=== PATIENT | female | born 1970 | race Caucasian/White ===

== ENCOUNTER 2020-03-09 17:41 | Inpatient (IN) | payer OTHER ==
[2020-03-08] MEDS: ATORVASTATIN 20 MG TAB PO SCH (22:30)
[~2020-03-09] VITALS: Ht 180.3 cm; Wt 119.8 kg
[2020-03-09] MEDS ORDERED: ASPIRIN 81 MG CHEW TAB PO ONE (18:00)
--- NOTE | 2020-03-09 18:01 | Emergency Department Note ---
History of Present Illnes History of Present Illness Chief Complaint: General Medicine Complaints History of Present Illness This is a 49 year old female .c/o mid sternum chest pain on set 1pm Chief Complaint Comment chest pain after taking tylenol #3 around 3 pm, had dental procedure earllier today. denies shortness of breath, nausea and vomitng. Onset (how long ago): day(s) (1 pm ) Location: mid sternum Quality: mod Radiation: extremity Severity: moderate Onset quality: sudden Duration (how long): day(s) (1pm) Timing of current episode: constant Progression: worsening Context: recent illness, recent surgery, recent immobilization, recent travel, trauma/injury, new medications, hx of DVT/PE, non-compliance w/ medications; other (pt had dental work this am ) Relieving factors: none Exacerbating factors: none Treatments prior to arrival: none Past Medical/Family History Physician Review I have reviewed the patient's past medical and family history. Any updates have been documented here. Past Medical History Recent Fever: No Clinical Suspicion of Infectio: No New/Unexplained Change in Ment: No Past Medical History: None, Anxiety Other Medical History: pcos Past Surgical History: Cholecysctectomy Social History Smoking Cessation: Never Smoker Alcohol Use: None Any Illegal Drug Use: No TB Exposure/Symptoms: No Physically hurt or threatened: No Family History Family history of heart diseas: No Other Any Pre-Existing Lines (PICC,: No Review of Systems Review of Systems Constitutional: diaphoresis EENTM: no symptoms Cardiovascular: chest pain Respiratory: no symptoms Gastrointestinal: nausea Genitourinary: no symptoms Musculoskeletal: no symptoms Neurological: no symptoms Psychological: no symptoms Endocrine: no symptoms Hematological/Lymphatic: no symptoms Review of other systems All other systems reviewed and negative. Physical Exam Related Data Allergies: Coded Allergies: No Known Allergies (Unverified , 03/09/20) Triage Vital Signs Vital Signs Date Time Temp Pulse Resp B/P (MAP) Pulse Ox O2 Delivery O2 Flow Rate FiO2 03/09/20 17:45 97.6 71 20 186/112 98 Vital signs reviewed: Yes Physical Exam CONSTITUTIONAL Constitutional: well-developed, well-nourished HENT HENT: normocephalic, atraumatic, oropharynx clear/moist, nose normal HENT L/R: left ext ear normal, right ext ear normal EYES Eyes: PERRL, conjunctivae normal NECK Neck: ROM normal PULMONARY Pulmonary: effort normal, breath sounds normal CARDIOVASCULAR Cardiovascular: regular rhythm, heart sounds normal, capillary refill normal, normal rate, other (c/o mid sternum chest ); LLE edema, RLE edema GASTROINTESTINAL Abdominal: soft, nontender, bowel sounds normal GENITOURINARY Genitourinary: exam deferred SKIN Skin: warm, dry MUSCULOSKELETAL Musculoskeletal: ROM normal NEUROLOGICAL Neurological: alert, oriented x 3, no gross motor or sensory deficits PSYCHOLOGICAL Psychological: mood/affect normal, judgement normal Results Laboratory Laboratory Laboratory Tests Test 03/09/20 18:15 White Blood Count 20.81 x10e3/uL (4.8-10.8) Red Blood Count 4.73 x10e6/uL (3.6-5.1) Hemoglobin 12.8 g/dL (12.0-16.0) Hematocrit 39.2 % (34.2-44.1) Mean Corpuscular Volume 82.9 fL (81-99) Mean Corpuscular Hemoglobin 27.1 pg (28-32) Mean Corpuscular Hemoglobin Concent 32.7 g/dL (31-35) Red Cell Distribution Width 14.3 % (11.7-14.4) Platelet Count 390 x10e3/uL (140-360) Neutrophils (%) (Auto) 83.1 % (38.7-80.0) Lymphocytes (%) (Auto) 10.3 % (18.0-39.1) Monocytes (%) (Auto) 4.7 % (4.4-11.3) Eosinophils (%) (Auto) 0.8 % (0.0-6.0) Basophils (%) (Auto) 0.4 % (0.0-1.0) Neutrophils # (Auto) 17.3 (2.1-6.9) Lymphocytes # (Auto) 2.2 (1.0-3.2) Monocytes # (Auto) 1.0 (0.2-0.8) Eosinophils # (Auto) 0.2 (0.0-0.4) Basophils # (Auto) 0.1 (0.0-0.1) Absolute Immature Granulocyte (auto 0.15 x10e3/uL (0-0.1) Prothrombin Time 12.4 seconds (11.9-14.5) Prothromb Time International Ratio 0.88 Activated Partial Thromboplast Time 23.5 seconds (23.8-35.5) Sodium Level 139 mmol/L (136-145) Potassium Level 3.5 mmol/L (3.5-5.1) Chloride Level 105 mmol/L (98-107) Carbon Dioxide Level 21 mmol/L (22-29) Anion Gap 16.5 mmol/L (8-16) Blood Urea Nitrogen 6 mg/dL (7-26) Creatinine 0.92 mg/dL (0.57-1.11) Estimat Glomerular Filtration Rate > 60 ML/MIN (60-) BUN/Creatinine Ratio 7 (6-25) Glucose Level 159 mg/dL (74-118) Calcium Level 9.3 mg/dL (8.4-10.2) Total Bilirubin 0.4 mg/dL (0.2-1.2) Aspartate Amino Transf (AST/SGOT) 22 IU/L (5-34) Alanine Aminotransferase (ALT/SGPT) 24 IU/L (0-55) Alkaline Phosphatase 53 IU/L (40-150) Creatine Kinase 188 IU/L (29-168) Creatine Kinase MB 3.40 ng/mL (0-5.0) Troponin I 0.071 ng/mL (0-0.300) Total Protein 7.8 g/dL (6.5-8.1) Albumin 3.5 g/dL (3.5-5.0) Globulin 4.3 g/dL (2.3-3.5) Albumin/Globulin Ratio 0.8 (0.8-2.0) Thyroid Stimulating Hormone (TSH) 2.148 uIU/mL (0.350-4.940) Laboratory Tests Test 03/09/20 18:15 White Blood Count 20.81 x10e3/uL (4.8-10.8) Red Blood Count 4.73 x10e6/uL (3.6-5.1) Hemoglobin 12.8 g/dL (12.0-16.0) Hematocrit 39.2 % (34.2-44.1) Mean Corpuscular Volume 82.9 fL (81-99) Mean Corpuscular Hemoglobin 27.1 pg (28-32) Mean Corpuscular Hemoglobin Concent 32.7 g/dL (31-35) Red Cell Distribution Width 14.3 % (11.7-14.4) Platelet Count 390 x10e3/uL (140-360) Neutrophils (%) (Auto) 83.1 % (38.7-80.0) Lymphocytes (%) (Auto) 10.3 % (18.0-39.1) Monocytes (%) (Auto) 4.7 % (4.4-11.3) Eosinophils (%) (Auto) 0.8 % (0.0-6.0) Basophils (%) (Auto) 0.4 % (0.0-1.0) Neutrophils # (Auto) 17.3 (2.1-6.9) Lymphocytes # (Auto) 2.2 (1.0-3.2) Monocytes # (Auto) 1.0 (0.2-0.8) Eosinophils # (Auto) 0.2 (0.0-0.4) Basophils # (Auto) 0.1 (0.0-0.1) Absolute Immature Granulocyte (auto 0.15 x10e3/uL (0-0.1) Prothrombin Time 12.4 seconds (11.9-14.5) Prothromb Time International Ratio 0.88 Activated Partial Thromboplast Time 23.5 seconds (23.8-35.5) Sodium Level 139 mmol/L (136-145) Potassium Level 3.5 mmol/L (3.5-5.1) Chloride Level 105 mmol/L (98-107) Carbon Dioxide Level 21 mmol/L (22-29) Anion Gap 16.5 mmol/L (8-16) Blood Urea Nitrogen 6 mg/dL (7-26) Creatinine 0.92 mg/dL (0.57-1.11) Estimat Glomerular Filtration Rate > 60 ML/MIN (60-) BUN/Creatinine Ratio 7 (6-25) Glucose Level 159 mg/dL (74-118) Calcium Level 9.3 mg/dL (8.4-10.2) Total Bilirubin 0.4 mg/dL (0.2-1.2) Aspartate Amino Transf (AST/SGOT) 22 IU/L (5-34) Alanine Aminotransferase (ALT/SGPT) 24 IU/L (0-55) Alkaline Phosphatase 53 IU/L (40-150) Creatine Kinase 188 IU/L (29-168) Total Protein 7.8 g/dL (6.5-8.1) Albumin 3.5 g/dL (3.5-5.0) Globulin 4.3 g/dL (2.3-3.5) Albumin/Globulin Ratio 0.8 (0.8-2.0) Laboratory Tests Test 03/09/20 18:15 Laboratory Tests Test 03/09/20 18:15 Lab results reviewed: Yes Imaging Impressions IMPRESSION: No acute thoracic abnormality. Signed by: Dr. Chelita Thomas MD on 03/09/2020 6:39 PM Dictated By: CHELITA THOMAS MD 38 Transcribed By: SANCHEZ on 03/09/201838 Procedures 12 Lead ECG Interpretation Furnace Mason: Interpreted by ED physician (ross) Date: March 09, 2020 Time: 18:10 Prior IT PROJECT LEAD tracings: reviewed Rhythm: sinus rhythm Ectopy: PVC's Rate: normal BPM: 71 QRS axis: normal ST segments normal: No (stemi) ST segment elevation: II, III, aVF Clinical Impression: abnormal ECG Critical Care Time Subsequent provider I assumed direction of critical care for this patient from another provider of my specialty. Assessment & Plan Reassessment Reassessment time: 17:59 Reassessment 49y f presented to ed c/o mid sternum cp on set 1pm reports nausea chills diaphoresis cp radiating to left arm - Dr Naranjo in eval pt status - lab ekg cxr ordered Dr Naranjo at bed side eval pt 2nd ekg obtained STEMI ALERT called 1810 pt to go to general laborer Assessment & Plan Final Impression: (1) ST ELEVATION (STEMI) MYOCARDIAL INFARCTION OF [facility] SITE Assessment & Plan Dr Naranjo discussed plan of care and need for admit Dr Naranjo spoke w/ Dr Mariscal will take pt to general laborer Dr Naranjo spoke w/ Dr Forman will admit pt to general laborer Depart Disposition: ADMITTED Last Vital Signs Date Time Temp Pulse Resp B/P (MAP) Pulse Ox O2 Delivery O2 Flow Rate FiO2 03/09/20 17:45 97.6 71 20 186/112 98 Medications in the ED Aspirin 81 mg PRN ONCE PO ; Start 03/09/20 at 18:00; Stop 03/09/20 at 18:01; Status UNV JAXON SANDERS NP March 09, 2020 18:01
--- NOTE | 2020-03-09 18:01 | NUR ---
CRASH CART IN ROOM AND PT ON PADS. ELEVATION ST NOTED.
[2020-03-09] MEDS ORDERED: ONDANSETRON HCL INJ 2MG/ML 2ML 2 MG/ML VIAL IV PRN (18:15)
[2020-03-09] MEDS ORDERED: MORPHINE SULFATE 2 MG/ML SYR 1ML IV PRN (18:15)
--- NOTE | 2020-03-09 18:29 | NUR ---
consent on chart
[2020-03-09] MEDS ORDERED: MORPHINE SULFATE 2 MG/ML SYR 1ML IV NR (18:30)
[2020-03-09] MEDS ORDERED: ONDANSETRON HCL INJ 2MG/ML 2ML 2 MG/ML VIAL IV NR (18:30)
--- NOTE | 2020-03-09 18:31 | NUR ---
ASA given by ems relief captain total 324mg po chew and swallow.
--- NOTE | 2020-03-09 18:33 | NUR ---
called lab regarding why blood not registered in to start being run. spoke to nickolas in lab.
--- NOTE | 2020-03-09 18:40 | NUR ---
DR MERCADO'S HERE. CHART TO RN. REPORT TO RN. PT REMAINS SR WITH ST ELEVATION NOTED. SPOUSE AT BEDSIDE.
[2020-03-09 18:41] LABS: BASOPHILS # (AUTO) 0.1 (0.0-0.1); BASOPHILS % 0.4 % (0.0-1.0); EOSINOPHILS # (AUTO) 0.2 (0.0-0.4); EOSINOPHILS % 0.8 % (0.0-6.0); HEMATOCRIT 39.2 % (34.2-44.1); HEMOGLOBIN 12.8 g/dL (12.0-16.0); LYMPHOCYTES # (AUTO) 2.2 (1.0-3.2); LYMPHOCYTES % 10.3 % (18.0-39.1); MEAN CORPUSCULAR HEMOGLOBIN 27.1 pg (28-32); MEAN CORPUSCULAR HGB CONC 32.7 g/dL (31-35); MEAN CORPUSCULAR VOLUME 82.9 fL (81-99); MONOCYTES % 4.7 % (4.4-11.3); NEUTROPHILS # (AUTO) 17.3 (2.1-6.9); NEUTROPHILS % 83.1 % (38.7-80.0); PLATELET COUNT 390 x10e3/uL (140-360); RED BLOOD COUNT 4.73 x10e6/uL (3.6-5.1); RED CELL DISTRIBUTION WIDTH 14.3 % (11.7-14.4)
--- NOTE | 2020-03-09 18:42 | Diagnostic Imaging Report ---
EXAMINATION: CHEST SINGLE (PORTABLE) INDICATION: Chest pain. COMPARISON: None FINDINGS: TUBES and LINES: None. LUNGS: Lungs are moderately inflated. There is no evidence of pneumonia or pulmonary edema. PLEURA: No pleural effusion or pneumothorax. HEART AND MEDIASTINUM: The cardiomediastinal silhouette is unremarkable. BONES AND SOFT TISSUES: No acute osseous lesion. Soft tissues are unremarkable. UPPER ABDOMEN: No free air under the diaphragm. IMPRESSION: No acute thoracic abnormality. Signed by: Dr. Nii Silveira MD on 03/09/2020 6:39 PM
[2020-03-09] MEDS ORDERED: HEPARIN SOD (PORCINE) 1000 UNIT/ML 30ML ONE (18:43)
[2020-03-09] MEDS ORDERED: FENTANYL CITRATE/PF 100MCG/2 ML INJ ONE (18:44)
[2020-03-09] MEDS ORDERED: MIDAZOLAM HCL 2 MG/2 ML VIAL ONE (18:44)
[2020-03-09] MEDS ORDERED: LIDOCAINE HCL 2% LOCAL 20 ML VIAL ONE (18:44)
[2020-03-09] MEDS ORDERED: NITROGLYCERIN/D5W 200 MCG/ML 250 ML ONE (18:45)
[2020-03-09] MEDS ORDERED: HEPARIN SOD/SOD CHLORIDE 2,000 ML ONE (18:45)
[2020-03-09] MEDS ORDERED: SODIUM CHLORIDE 0.9% 1000ML 1,000 ML ONE (18:45)
[2020-03-09] MEDS ORDERED: IOPAMIDOL 370 MG/ML 200 ML INFUS..BTL INJ ONE ×2 (18:45→19:45)
[2020-03-09 18:51] LABS: INR 0.88; PARTIAL THROMBOPLASTIN TIME 23.5 seconds (23.8-35.5); PROTHROMBIN TIME 12.4 seconds (11.9-14.5)
--- NOTE | 2020-03-09 18:54 | NUR ---
STOCK CHASER HERE TAKING PT. PT LEAVING FOR CATH
--- NOTE | 2020-03-09 18:57 | NUR ---
CBC NOT RUNNING, CALLED BLAKE IN LAB AGAIN TO NOTIFY OF PT BEING STEMI AND LEFT ER FOR DIE PRESS OPERATOR AND NO RESULTS OR EVEN LOGGED IN AT THIS TIME.
[2020-03-09 18:59] LABS: ALANINE AMINOTRANSFERASE 24 IU/L (0-55); ALBUMIN 3.5 g/dL (3.5-5.0); ALBUMIN/GLOBULIN RATIO 0.8 (0.8-2.0); ALKALINE PHOSPHATASE 53 IU/L (40-150); ANION GAP 16.5 mmol/L (8-16); BLOOD UREA NITROGEN 6 mg/dL (7-26); BUN/CREATININE RATIO 7 (6-25); CALCIUM 9.3 mg/dL (8.4-10.2); CARBON DIOXIDE 21 mmol/L (22-29); CHLORIDE 105 mmol/L (98-107); CREATINE KINASE 188 IU/L (29-168); CREATININE, SERUM 0.92 mg/dL (0.57-1.11); EST GLOMERULAR FILTRATION RATE > 60 ML/MIN (60-); GLUCOSE 159 mg/dL (74-118); POTASSIUM 3.5 mmol/L (3.5-5.1); SODIUM 139 mmol/L (136-145)
[2020-03-09 19:18] LABS: THYROID STIMULATING HORMONE 2.148 uIU/mL (0.350-4.940)
[2020-03-09] MEDS ORDERED: TICAGRELOR 90 MG TABLET ONE (19:18)
[2020-03-09] MEDS: EPTIFIBATIDE 75mg 100ML 100 ML IV SCH (19:30)
[2020-03-09] MEDS ORDERED: EPTIFIBATIDE 75mg 100ML 100 ML ONE (19:39)
[2020-03-09] MEDS ORDERED: EPTIFIBATIDE 20 ML ONE (19:39)
--- OUTSIDE RECORDS SUMMARY | 2020-03-09 20:18 | XMS REPORT | Clinical Summary ---
Author Author [facility] Organization [facility] Address Unknown Phone Unavailable Care Team Providers Care Manufacturing Business Analyst Name Role Phone Asked, No Pcp PCP Unavailable Allergies No Known Allergies Medications End Date Status Medication Sig Dispensed Refills Start Date Active omeprazole (PriLOSEC) 20 Take 20 mg by 0 MG capsule mouth daily. Active cyanocobalamin, vitamin Take 1,500 0 B-12, 1,000 mcg/15 mL mcg by mouth liquid every morning. Active doxylamine (UNISOM, Take 25 mg by 0 DOXYLAMINE,) 25 mg tablet mouth nightly as needed for sleep. Active Problems Problem Noted Date Acute cholecystitis 02/13/2019 Social History Date Tobacco Use Types Packs/Day Years Used Current Every Day Smoker 0.5 18 Smokeless Tobacco: Never Used Drinks/Week oz/Week Comments Alcohol Use No Alcohol Habits Answer Date Recorded How often do you have a drink containing alcohol? Never 02/13/2019 How many drinks containing alcohol do you have on No t asked a typical day when you are drinking? How often do you have six or more drinks on one Not asked occasion? Sex Assigned at Date Recorded Not on file Industry Job Start Date Occupation Not on file Not on file Not on file Travel End Travel History Travel Start No recent travel history available. Last Filed Vital Signs Not on file Plan of Treatment Health Maintenance Due Date Last Done Comments CERVICAL CANCER SCREENING 1993 INFLUENZA VACCINE 05/11/2020 Results Not on fileafter 03/09/2019 Insurance Type Payer Benefit Subscriber ID Effective Phone Address Plan / Dates Group Commercial [employer] PENSION ADMINIS GROUP AND xxxxxxxxx 2018-P PENSION resent ADMINIS Advance Directives For more information, please contact: [phone] Patient Supervisor Insulation Explanation Type Date Recorded Advance Directives, 02/13/2019 8:52 AM Living Will and Medical Power of Genetic Coordinator Date Inactivated Comments Code Status Date Activated 02/14/2019 10:32 PM Full Code 02/13/2019 11:38 PM Code Status decision reached by: Patient 02/13/2019 11:37 PM Full Code 02/13/2019 2:30 PM Code Status decision reached by: Patient
--- OUTSIDE RECORDS SUMMARY | 2020-03-09 20:18 | XMS REPORT ---
Author Author [facility] t Organization [facility] Address [address] [place] [address] Phone Unavailable Care Team Providers Care Supervisor Filter Assembly Name Role Phone Asked, Pcp No PCP Unavailable Edilia CHAVEZ Attphys Unavailable Problems Condition Name Condition Details Condition Category Status Onset Date Resolution Date Last Treatment Date Treating Clinician Comments Source Acute cholecystitis Acute cholecystitis Disease Active 2019-02-13 00:00 :00 Jass Leyva Allergies, Adverse Reactions, Alerts This patient has no known allergies or adverse reactions. Social History Social Habit Start Date Stop Date Quantity Comments Source History SDOH Alcohol Std Drinks Jass Leyva History SDOH Alcohol Binge Jass Leyva Sex Assigned At Kian Leyva Cigarettes smoked current (pack per day) - Reported 00:00:00 2019-02-14 00:00:00 Jass Leyva Cigarette pack-years 2019-02-14 00:00:00 2019-02-14 00:00:00 Jass Leyva Alcohol intake 2019-02-14 00:00:00 2019-02-14 00:00:00 Current non-drinker of alcohol (finding) Jass Leyva History SDOH Alcohol Frequency 2019-02-13 00:00:00 2019-02-13 00:00:0 0 1 Jass Leyva Smoking Status Start Date Stop Date Source Current every day smoker 2019-02-14 00:00:00 Kian Leyva Medications Ordered Medication Name Filled Medication Name Start Date Stop Da te Current Medication? Ordering Clinician Indication Dosage Frequency Signature (SIG) Comments Components Source omeprazole (PriLOSEC) 20 MG capsule 2019-02-14 18:32:13 Yes 20mg QD Take 20 mg by mouth daily. Jass Leyva cyanocobalamin, vitamin B-12, 1,000 mcg/15 mL liquid 2 18:32:13 Yes 1500ug QD Take 1,500 mcg by mouth every morning. Jass Leyva doxylamine (UNISOM, DOXYLAMINE,) 25 mg tablet 2019-02-14 18:32:1 3 Yes 25mg QD Take 25 mg by mouth nightly as needed for sleep. Jass Leyva Procedures This patient has no known procedures. Plan of Care Planned Activity Planned Date Details Comments Source Future Scheduled Test 2020-05-11 00:00:00 INFLUENZA VACCINE [code = INFLUENZA VACCINE] Jass Leyva Future Scheduled Test 1993 00:00:00 Screening for sandrine gnant neoplasm of cervix (procedure) [code = 964193580] Jass Lazar t Results Test Description Test Time Test Comments Results Result Comments Source CHEST SINGLE (PORTABLE) 2020-03-09 18:38:00 [place] [address] Patient Name: KADEN MAK MR #: [id number] : 1970 Age/Sex: 49/F Req #: [id number] Adm Physician: Ordered by: JAXON SANDERS MOTOR BUILDER WINDER Report #: [id number] Location: ER Room/Bed: Procedure: [id number] DX/CHEST SINGLE (PORTABLE) Exam Date: 03/09/20 Exam Time: 1811 REPORT STATUS: Signed EXAMINATION: CHEST SINGLE (PORTABLE) INDICATION: Chest pain. COMPARISON: None FINDINGS: TUBES and LINES: None. LUNGS: Lungs are moderately inflated. There is no evidence of pneumonia or pulmonary edema. PLEURA: No pleural effusion or pneumothorax. HEART AND MEDIASTINUM: The cardiomediastinal silhouette is unremarkable. BONES AND SOFT TISSUES: No acute osseous lesion. Soft tissues are unremarkable. UPPER ABDOMEN: No free air under the diaphragm. IMPRESSION: No acute thoracic abnormality. Signed by: Dr. Chelita Thomas MD on 03/09/2020 6:39 PM Dictated By: CHELITA THOMAS MD 38 Transcribed By: SANCHEZ on 03/09/201838 COPY TO: JAXON SANDERS NP
[2020-03-09 20:34] VITALS: BP 144/98
[2020-03-09 21:00] VITALS: BP 147/90
[2020-03-09 21:15] VITALS: BP 153/98
[2020-03-09 22:00] VITALS: BP 151/85
--- NOTE | 2020-03-09 22:22 | NUR ---
Notified Dr. Mariscal of bleeding from cath site and pressure dressing applied. stated OK to change original dsg after bleeding stops.
[2020-03-09 23:00] VITALS: BP 150/97
--- NOTE | 2020-03-09 23:15 | NUR ---
Rhythm change noted. EKG done. Dr. Mariscal saw EKG, received new orders. Patient shows no acute signs of distress.
[2020-03-09] MEDS ORDERED: AMIODARONE HCL 150MG 100 ML IV ONE (23:30)
[2020-03-09] MEDS ORDERED: AMIODARONE HCL 900 MG in DEXTROSE 5% 500ML 500 ML IV ONE (23:30)
[2020-03-09] MEDS ORDERED: AMIODARONE 900MG 500 ML IV ONE (23:38)
[2020-03-09] MEDS ORDERED: AMIODARONE HCL 100 ML IV ONE (23:38)
[2020-03-10] VITALS (22 sets, daily range): BP systolic 132–171; BP diastolic 59–104
--- NOTE | 2020-03-10 00:11 | Operative Report ---
DATE OF PROCEDURE: SURGEON: Buddy Mariscal DO PROCEDURES PERFORMED: 1. Conscious sedation, 1 hour. 2. Selective coronary angiography x2. 3. Left heart catheterization. 4. Percutaneous transluminal angioplasty and stent placement to the left anterior descending coronary artery. 5. Percutaneous coronary intervention during an acute myocardial infarction. PRE-PROCEDURE DIAGNOSIS: Inferior ST-elevation myocardial infarction. POST PROCEDURE DIAGNOSIS: Inferior ST-elevation myocardial infarction. ESTIMATED BLOOD LOSS: Less than 20 mL. SPECIMENS REMOVED: None. PROCEDURE IN DETAIL: After informed consent was obtained, the patient was brought to the cardiac catheterization emergently after being found to have inferior ST elevations on her electrocardiogram and having symptoms of chest pain. Bilateral groins were prepped and draped in the usual sterile fashion. A 2% lidocaine was used for the right anterior groin for local anesthesia. Using a micropuncture needle, the right common femoral artery was accessed via modified Seldinger technique and a 6-Hebrew sheath was placed. The patient received Fentanyl and midazolam administered by the laborer livestock nurse and her neurologic and physiologic states were monitored by myself and the laborer livestock staff. Diagnostic coronary angiography was performed. This revealed an 80% ulcerated lesion in the proximal LAD with plaque burden. The lesion was crossed and pre-dilated with a two 5 x 12 balloon. Then, the lesion was stented with a three 5 x 20 [employer] synergy drug-eluting stent. There was a plaque shift proximally and distally, so the proximal portion was stented with a three 5 x 8 [employer] synergy drug-eluting stent. The distal portion then was stented with a 4 x 12 Synergy drug-eluting stent. The entire stent length was then post dilated with the 4 mm balloon. Final angiography confirmed excellent stent apposition with brisk JO-ANN-3 flow up until the distal portion of the LAD at the apex. There was mild distal thrombus with JO-ANN-2 flow here. The patient tolerated the procedure well with no immediate complications and was transferred back to her room in stable condition. Hemostasis was achieved via Angio-Seal device. PROCEDURAL FINDINGS: 1. Left main coronary artery is patent without significant disease. 2. LAD has an ulcerated 80% plaque in the proximal portion. There is distal thrombus at the apical LAD region. 3. Left circumflex coronary provides two obtuse marginal vessels with luminal irregularities. 4. Right coronary artery is a dominant vessel and provides the posterior descending coronary artery. There is a proximal 20% stenosis. 5. Left ventricular end-diastolic pressure was 20 to 25 mmHg with no aortic valve gradient present upon pullback. INTERVENTION RESULTS: Successful percutaneous coronary intervention of the left anterior descending coronary artery. Pre-PCI JO-ANN flow was 2. Post PCI JO-ANN flow was 3. Postprocedure stenosis less than 10%. DO TAYLER Carney/NICKIE /[id number]
--- NOTE | 2020-03-10 02:00 | NUR ---
Dr. Mariscal aware that catheter insertion site is bleeding, violeta dutton MD at bedside.
[2020-03-10] MEDS: EPTIFIBATIDE 75mg 100ML 100 ML IV SCH (02:20)
[2020-03-10] MEDS ORDERED: SPIRONOLACTONE25 MG PO (03:25)
[2020-03-10 05:51] LABS: BASOPHILS % 0.3 % (0.0-1.0); EOSINOPHILS % 0.2 % (0.0-6.0); HEMATOCRIT 36.8 % (34.2-44.1); HEMOGLOBIN 11.7 g/dL (12.0-16.0); LYMPHOCYTES # (AUTO) 2.3 (1.0-3.2); LYMPHOCYTES % 15.4 % (18.0-39.1); MEAN CORPUSCULAR HEMOGLOBIN 26.7 pg (28-32); MEAN CORPUSCULAR HGB CONC 31.8 g/dL (31-35); MONOCYTES # (AUTO) 0.9 (0.2-0.8); MONOCYTES % 5.8 % (4.4-11.3); NEUTROPHILS # (AUTO) 11.9 (2.1-6.9); PLATELET COUNT 343 x10e3/uL (140-360); RED BLOOD COUNT 4.38 x10e6/uL (3.6-5.1); RED CELL DISTRIBUTION WIDTH 14.4 % (11.7-14.4)
[2020-03-10 06:26] LABS: ALANINE AMINOTRANSFERASE 25 IU/L (0-55); ALBUMIN 3.1 g/dL (3.5-5.0); ALBUMIN/GLOBULIN RATIO 0.8 (0.8-2.0); ALKALINE PHOSPHATASE 47 IU/L (40-150); ANION GAP 13.8 mmol/L (8-16); BLOOD UREA NITROGEN 7 mg/dL (7-26); BUN/CREATININE RATIO 10 (6-25); CALCIUM 8.8 mg/dL (8.4-10.2); CARBON DIOXIDE 19 mmol/L (22-29); CHLORIDE 107 mmol/L (98-107); CHOL/HDL RATIO 4.5 (3.0-3.6); CHOLESTEROL 156 MD/DL (0-199); CREATININE, SERUM 0.69 mg/dL (0.57-1.11); EST GLOMERULAR FILTRATION RATE > 60 ML/MIN (60-); GLUCOSE 116 mg/dL (74-118); HDL CHOLESTEROL 35 MG/DL (40-60); LDL CHOLESTEROL 81 MG/DL (60-130); POTASSIUM 3.8 mmol/L (3.5-5.1); SODIUM 136 mmol/L (136-145); TRIGLYCERIDES 200 MG/DL (0-149)
[2020-03-10] MEDS: ASPIRIN 81 MG ENTERIC COATED PO SCH (10:00)
[2020-03-10] MEDS: METOPROLOL SUCCINATE 25 MG TAB XL PO SCH (10:00)
[2020-03-10] MEDS: TICAGRELOR 90 MG TABLET PO SCH ×2 (10:00→17:00)
[2020-03-10] MEDS ORDERED: AMIODARONE HCL 200 MG TAB PO SCH (12:00)
[2020-03-10] MEDS: LISINOPRIL 10 MG TAB PO SCH (12:58)
--- NOTE | 2020-03-10 14:19 | Consultation ---
DATE OF CONSULTATION: Pulmonary Critical Care Consultation CHIEF COMPLAINT: Chest pain and myocardial infarction. HISTORY OF PRESENT ILLNESS: The patient is a 49-year-old woman. She came in with substernal chest pain while asleep. She had diaphoresis and shortness of breath. EKG showed an inferior IA with ST-segment elevation. She went to the vat house laborer and had an emergent stent placed in the left anterior descending artery. She is now on Integrilin drip along with anti-platelet therapy. PAST SURGICAL HISTORY: 1. Status post cholecystectomy. 2. Status post PTCA as above. PAST MEDICAL HISTORY: Coronary artery disease. SOCIAL HISTORY: The patient is a smoker about half a pack a day. She does not drink alcohol. ALLERGIES: NO KNOWN DRUG ALLERGIES. REVIEW OF SYSTEMS: The patient is afebrile. She has no headache. She did have chest pain, but this has improved. She did have shortness of breath, but has improved. She has no abdominal pain. She has no nausea or vomiting. She has no leg edema. PHYSICAL EXAMINATION: VITAL SIGNS: The patient is afebrile. Blood pressure is 180/85, saturation is 97%. The pulse is 84. HEENT: Shows no facial swelling or erythema. CARDIAC: Reveals regular rate and rhythm with normal S1 and S2. LUNGS: Auscultation of lungs reveals clear breath sounds bilaterally. There is no wheezing. ABDOMEN: Soft, nontender. There is no rebound or guarding. EXTREMITIES: Show no leg edema or calf tenderness. There is no cyanosis or clubbing. SKIN: Shows no rashes. NEUROLOGICAL: Shows no focal abnormalities. LABORATORY DATA: BUN to creatinine ratio is 7 to 0.69. The other electrolytes are within normal limits. The carbon dioxide is 19. White blood cell count is 15.2 and hemoglobin is 11.7. The platelet count is 343. IMPRESSION: 1. Inferior wall myocardial infarction with percutaneous transluminal coronary angioplasty. 2. Coronary artery disease. 3. Hyperlipidemia. PLAN: 1. Continue Integrilin infusion. 2. Continue anti-platelet therapy. 3. Continue telemetry monitoring. 4. Transfer out of intensive care unit once Integrilin has finished and monitor in IMCU. Federico Moreno MD [facility]/NICKIE /[id number]
--- NOTE | 2020-03-10 15:03 | Progress Note ---
DATE: Cardiology Progress Note SUBJECTIVE: The patient is feeling overall better. Vague chest discomfort, however, is improved since yesterday. No shortness of breath. No palpitations. OBJECTIVE: VITAL SIGNS: Temperature is 97.9, heart rate is 84, respirations are 19, blood pressure is 155/91, oxygen saturation 97% on room air. GENERAL: Well appearing in no apparent distress. CARDIOVASCULAR: Regular rate and rhythm with ectopy. LUNGS: Clear to auscultation. ABDOMEN: Soft, nontender, obese. EXTREMITIES: No edema. CARDIOVASCULAR MEDICATIONS: Reviewed. LABORATORY DATA: Reviewed. Creatinine is 0.69. TELEMETRY: Monitoring reviewed and shows premature ventricular complexes and ventricular couplets with predominant rhythm being normal sinus rhythm. ASSESSMENT: 1. Inferior ST-elevation myocardial infarction. 2. Coronary artery disease, status post percutaneous coronary intervention to the proximal left anterior descending coronary artery. 3. Hypertension. 4. Hyperlipidemia. 5. Obesity. 6. Tobacco use. 7. Acute systolic congestive heart failure. PLAN: 1. The patient is stable from a cardiovascular standpoint. She had developed an idioventricular rhythm last night and was initiated on amiodarone infusion. Once this protocol is completed, start amiodarone 200 mg p.o. b.i.d. Her ejection fraction is mildly decreased 40% to 45%.. Start Toprol-XL and lisinopril. She appears well compensated and euvolemic. Monitor closely on telemetry. Continue dual anti-platelet therapy and high-dose statin. Buddy Mariscal DO [facility]/MODL /[id number]
[2020-03-10] MEDS: AMIODARONE HCL 200 MG TAB PO SCH (17:00)
[2020-03-10] MEDS: ATORVASTATIN 20 MG TAB PO SCH (20:40)
[2020-03-11] VITALS: BP 151/91
[2020-03-11 05:00] VITALS: BP 131/86
[2020-03-11 06:08] LABS: BASOPHILS # (AUTO) 0.1 (0.0-0.1); BASOPHILS % 0.4 % (0.0-1.0); EOSINOPHILS # (AUTO) 0.2 (0.0-0.4); EOSINOPHILS % 1.1 % (0.0-6.0); HEMATOCRIT 37.7 % (34.2-44.1); HEMOGLOBIN 12.4 g/dL (12.0-16.0); LYMPHOCYTES # (AUTO) 2.7 (1.0-3.2); LYMPHOCYTES % 18.9 % (18.0-39.1); MEAN CORPUSCULAR HEMOGLOBIN 27.4 pg (28-32); MEAN CORPUSCULAR HGB CONC 32.9 g/dL (31-35); MEAN CORPUSCULAR VOLUME 83.2 fL (81-99); MONOCYTES # (AUTO) 1.1 (0.2-0.8); MONOCYTES % 7.9 % (4.4-11.3); NEUTROPHILS # (AUTO) 10.2 (2.1-6.9); NEUTROPHILS % 71.1 % (38.7-80.0); PLATELET COUNT 332 x10e3/uL (140-360); RED BLOOD COUNT 4.53 x10e6/uL (3.6-5.1); RED CELL DISTRIBUTION WIDTH 14.6 % (11.7-14.4)
[2020-03-11 06:31] LABS: ALANINE AMINOTRANSFERASE 29 IU/L (0-55); ALBUMIN 3.3 g/dL (3.5-5.0); ALBUMIN/GLOBULIN RATIO 0.8 (0.8-2.0); ALKALINE PHOSPHATASE 52 IU/L (40-150); ANION GAP 13.7 mmol/L (8-16); BLOOD UREA NITROGEN 8 mg/dL (7-26); BUN/CREATININE RATIO 11 (6-25); CARBON DIOXIDE 20 mmol/L (22-29); CHLORIDE 105 mmol/L (98-107); CREATININE, SERUM 0.74 mg/dL (0.57-1.11); EST GLOMERULAR FILTRATION RATE > 60 ML/MIN (60-); GLUCOSE 112 mg/dL (74-118); MAGNESIUM 1.6 MG/DL (1.3-2.1); POTASSIUM 3.7 mmol/L (3.5-5.1); SODIUM 135 mmol/L (136-145)
[2020-03-11 07:32] VITALS: BP 131/86
[2020-03-11 07:48] VITALS: BP 129/91
[2020-03-11] MEDS: METOPROLOL SUCCINATE 25 MG TAB XL PO SCH (07:50)
[2020-03-11] MEDS: TICAGRELOR 90 MG TABLET PO SCH ×2 (07:51→16:11)
[2020-03-11] MEDS: LISINOPRIL 10 MG TAB PO SCH (07:51)
[2020-03-11] MEDS: AMIODARONE HCL 200 MG TAB PO SCH ×2 (07:51→16:11)
[2020-03-11] MEDS: ASPIRIN 81 MG ENTERIC COATED PO SCH (07:51)
--- NOTE | 2020-03-11 10:06 | Progress Note ---
DATE: 03/11/2020 SUBJECTIVE: The patient denies chest pain or shortness of breath. OBJECTIVE: VITAL SIGNS: Temperature 98.4 degrees, pulse 90, respiratory rate 18, blood pressure 129/91, and oxygen saturation 100% on room air. GENERAL: Awake, alert, in no acute distress. LUNGS: Clear to auscultation bilaterally. No wheezes or crackles. CARDIOVASCULAR: Normal rate. Regular rhythm. No murmur. Normal S1, S2. ABDOMEN: Soft, nontender. EXTREMITIES: No edema. CARDIAC MEDICATIONS: Amiodarone 200 mg p.o. b.i.d., lisinopril 10 mg p.o. daily, aspirin 81 mg p.o. daily, metoprolol succinate 25 mg p.o. daily, atorvastatin 80 mg p.o. at bedtime, and Brilinta 90 mg p.o. b.i.d. LABORATORY DATA: WBC 14.28, hemoglobin 12.4, hematocrit 37.7, and platelets 332. Sodium 135, potassium 3.7, chloride 105, CO2 of 20, BUN 8, and creatinine 0.74. TELEMETRY: Telemetry was personally reviewed and interpreted, revealing normal sinus rhythm. IMPRESSION: 1. Inferior ST-elevation myocardial infarction. 2. Coronary artery disease, status post PCI of the LAD. 3. Hypertension. 4. Hyperlipidemia. 5. Acute systolic heart failure. 6. Tobacco use. 7. Obesity. RECOMMENDATIONS: Continue dual anti-platelet therapy and high dose statin. She is on optimal medical therapy for her acute systolic heart failure. Continue amiodarone. Monitor the patient on telemetry. She can be transferred out of the ICU as she is stable from a cardiovascular standpoint. Possible discharge home later today or tomorrow. Monitor the patient on telemetry while admitted. Thank you for this consult. We will continue to follow. Dannielle Austin MD ABS/MODL /[id number]
[2020-03-11] MEDS ORDERED: TOPROL XL25 MG PO (11:02)
[2020-03-11] MEDS ORDERED: ASPIRIN EC81 MG PO (11:02)
[2020-03-11] MEDS ORDERED: LIPITOR20 MG PO (11:02)
[2020-03-11] MEDS ORDERED: BRILINTA90 MG PO (11:02)
[2020-03-11] MEDS ORDERED: LISINOPRIL10 MG PO (11:02)
[2020-03-11] MEDS ORDERED: AMIODARONE HCL200 MG PO (11:02)
--- NOTE | 2020-03-11 11:46 | NUR ---
Report given to GINA Duarte for Room 115
--- NOTE | 2020-03-11 11:58 | NUR ---
RECEIVED PATIENT FROM ICU. PT AMBULATED TO UNIT WITH NURSE. NO S/S OF DISTRESS, PT IS ALERT WITH NO COMPLAINTS AT THIS TIME. PT ORIENTED TO ROOM, CALL LIGHT PLACED WITHIN REACH AND INSTRUCTED PT TO CALL RN FOR HELP
[2020-03-11 16:15] VITALS: BP 135/75
--- NOTE | 2020-03-11 17:33 | NUR ---
pt ambulated >400 ft in the hallways per Denice Berry NP and Dr. Austin's request. no s/s of distress noted. pt became tachy with the highest reaching 110 and had a pair of PVC's. notified Denice Berry NP and got discharge orders for the patient
--- NOTE | 2020-03-12 04:16 | Discharge Summary ---
ADMISSION DIAGNOSES: 1. ST-elevation myocardial infarction, arrhythmia. 2. Obesity with a BMI of 36.8. 3. Hyperlipidemia. DISCHARGE DIAGNOSES: 1. ST-elevation myocardial infarction, arrhythmia. 2. Obesity with a BMI of 36.8. 3. Hyperlipidemia. HISTORY: PCOS, anxiety. SURGICAL HISTORY: Uterine surgery, cholecystectomy. FAMILY HISTORY: The patient's aunt had a stroke. The patient's father had a heart attack. SOCIAL HISTORY: The patient admits to smoking 1/2 pack of cigarettes per day. HOSPITAL COURSE: A 49-year-old female, admits with complaints of substernal chest pain that began around 3 cm while napping. The pain radiated to her left side and back. She had associated diaphoresis, shortness of breath and nausea and vomiting. The patient had just finished with a dental procedure about an hour before that. On admission, chest x-ray was negative. Troponin was 0.071. TSH was within normal limits. Triglyceride was elevated at 200 and LDL was 181. Cardiology was consulted and the patient was immediately taken to technical laboratory asst for STEMI. The patient had a PCI of the left anterior descending coronary artery. The patient was initially on Integrilin drip and amiodarone drip for arrhythmias, that resolved and was the patient was switched to p.o. She will be discharged home with new prescriptions for amiodarone, aspirin, Lipitor, lisinopril, metoprolol, and Brilinta. She will follow up with primary care in 1 to 2 weeks and Cardiology in 1 to 2 weeks. The patient understands discharge instructions and agrees to plan. Vital signs stable and the patient afebrile. Dictated by Denice Berry NP MD JOHANN Soliman/ABDOULAYEL /[id number]
== END 2020-03-11 18:32 | disposition home or self-care (01) | DRG 246 ==
LOC: ER 17:48 → ERHOLD 20:14 → ICU 21:00 → MED/SURG 03-11 12:00
PROVIDERS: ADMIT Internal Medicine; ATTEND Internal Medicine
PROC: 4A023N7 Measurement of Cardiac Sampling and Pressure, Left Heart, Percutaneous Approach (ICD-10-PCS; principal; 2020-03-09)
PROC: B215YZZ Fluoroscopy of Left Heart using Other Contrast (ICD-10-PCS; 2020-03-09)
PROC: 027034Z Dilation of Coronary Artery, One Artery with Drug-eluting Intraluminal Device, Percutaneous Approach (ICD-10-PCS; 2020-03-09)
DX: I21.3 ST elevation (STEMI) myocardial infarction of unspecified site (principal); I50.21 Acute systolic (congestive) heart failure; I11.0 Hypertensive heart disease with heart failure; E66.9 Obesity, unspecified; Z68.36 Body mass index [BMI] 36.0-36.9, adult; E78.5 Hyperlipidemia, unspecified; I25.10 Atherosclerotic heart disease of native coronary artery without angina pectoris
CPT/HCPCS: 36415; 71045; 80053; 80061; 82550; 82553; 82948; 83036; 83735; 83880; 84443; 84484; 85025; 85610; 85730; 87635; 92928; 93005; 93306; 93458; 99152; 99153; J1327; J1644; J2001; J2250; J2270; J2405; J3010; J7030; J7060; Q9967